=== PATIENT | female | born 1955 | race Caucasian/White ===

== ENCOUNTER 2019-07-16 14:50 | Emergency (ER) | payer OTHER ==
--- NOTE | 2019-07-16 14:56 | EDM.PDOC ---
ED HPI GENERAL MEDICAL PROBLEM - General Chief Complaint: Respiratory Problem Stated Complaint: respiratory issues Time Seen by Provider: 07/16/19 14:55 Source of Information: Reports: Patient, Old Records, RN, RN Notes Reviewed History Limitations: Reports: No Limitations - History of Present Illness INITIAL COMMENTS - FREE TEXT/NARRATIVE: 65 y.o F presents with cough, SOB ongoing for a couple weeks, worsened yesterday. Pt reports that she has not travelled out of the area or been around anybody who has been sick. Pt reports produtive cough that is yellow. Pt reports HX of pneumonia in the past. HX chronic steroid use. 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, Other Medication(s) Headache Pain Score (Numeric/FACES): 6 - Related Data Allergies Allergy/AdvReac Type Severity Reaction Status Date / Time cefdinir [From Omnicef] Allergy Anaphylactic Verified 07/16/19 16:28 Shock Cephalosporins Allergy Anaphylactic Verified 07/16/19 14:59 Shock ciprofloxacin Allergy Anaphylactic Verified 07/16/19 14:59 Shock doxycycline Allergy Vomiting Verified 07/16/19 14:59 infliximab [From Remicade] Allergy Hives Verified 07/16/19 16:28 levofloxacin [From Levaquin] Allergy Anaphylactic Verified 07/16/19 14:59 Shock ondansetron [From Zofran] Allergy Other Verified 07/16/19 14:59 rituximab [From Rituxan] Allergy Vomiting Verified 07/16/19 14:59 Sulfa (Sulfonamide Allergy Hives Verified 07/16/19 16:28 Antibiotics) Home Meds: Home Meds Abatacept [Orencia] 750 mg .ROUTE ASDIRECTED 07/16/19 [History] Albuterol [Proventil ER] 2 puff INH Q6H PRN 07/16/19 [History] Amoxicillin 2 gm PO ASDIRECTED PRN 07/16/19 [History] Aspirin [Aspirin EC] 81 mg PO DAILY 07/16/19 [History] Calcium Carbonate/Vitamin D3 [Calcium 500 mg Chewable Tablet] 1,000 mg PO TID [History] Cholecalciferol (Vitamin D3) [Vitamin D3] 800 units PO DAILY 07/16/19 [History] Denosumab [Prolia] 60 mg SUBCUT Q6M 07/16/19 [History] Fluconazole 150 mg PO Q48H PRN 07/16/19 [History] Leflunomide 20 mg PO DAILY 07/16/19 [History] Levothyroxine Sodium [Synthroid] 150 mcg PO DAILY 07/16/19 [History] Losartan [Cozaar] 100 mg PO DAILY 07/16/19 [History] Methylphenidate [Ritalin] 5 mg PO BID PRN 07/16/19 [History] Pantoprazole [ProTONIX] 40 mg PO BID 07/16/19 [History] Verapamil HCl [Verapamil Sr] 240 mg PO DAILY 07/16/19 [History] Zolpidem [Ambien] 10 mg PO BEDTIME PRN 07/16/19 [History] atenoloL [Atenolol] 50 mg PO DAILY 07/16/19 [History] estradioL [Estring] 1 each VAG WEEKLY 07/16/19 [History] oxyCODONE 5 mg PO Q6H PRN 07/16/19 [History] predniSONE 15 mg PO DAILY 07/16/19 [History] traMADol [Ultram] 50 mg PO Q6H PRN 07/16/19 [History] Past Medical History Cardiovascular History: Reports: Other (See Below) (autonomic dysregulation syndrome with paroxsymal tachycardia & hypotensive episodes.) Respiratory History: Reports: Pneumonia, Recurrent Gastrointestinal History: Reports: GERD Musculoskeletal History: Reports: RA Endocrine/Metabolic History: Reports: Hypothyroidism Immunologic History: Reports: Immunosuppression Social & Family History - Family History Family Medical History: Noncontributory - Living Situation & Occupation Living situation: Reports: with Family ED ROS GENERAL - Review of Systems Review Of Systems: Comprehensive ROS is negative, except as noted in HPI. ED EXAM, GENERAL - Physical Exam Exam: See Below Exam Limited By: No Limitations General Appearance: Alert, WD/WN, No Apparent Distress Eye Exam: Bilateral Eye: Normal Inspection Nose: Normal Inspection, Normal Mucosa, No Blood Throat/Mouth: Normal Lips, Normal Teeth, Normal Gums, Normal Oropharynx, Normal Voice, No Airway Compromise, Other (Dry oral mucosa) Head: Atraumatic, Normocephalic Neck: Normal Inspection, Supple, Non-Tender, Full Range of Motion. No: Lymphadenopathy (L), Lymphadenopathy (R) Respiratory/Chest: No Respiratory Distress, No Accessory Muscle Use, Chest Non- Tender, Decreased Breath Sounds, Crackles, Wheezing. No: Rales, Rhonchi, Stridor Cardiovascular: Regular Rate, Rhythm, No Edema GI/Abdominal: Normal Bowel Sounds, Soft, Non-Tender, No Distention Extremities: Normal Inspection Neurological: Alert, Oriented, No Motor/Sensory Deficits Psychiatric: Normal Mood Skin Exam: Warm, Dry, Intact, Normal Color, No Rash Course - Vital Signs Last Recorded V/S: Last Vital Signs Temp 97 F 07/16/19 14:55 Pulse 97 07/16/19 14:55 Resp 22 H 07/16/19 14:55 BP 137/67 07/16/19 14:55 Pulse Ox 96 07/16/19 14:55 - Orders/Labs/Meds Orders: Active Orders 24 hr Category Date Time Status Peripheral IV Care [RC] . DIRECTED Care 07/16/19 15:11 Active CULTURE BLOOD [BC] Stat Lab 07/16/19 15:09 Received CULTURE BLOOD [] Stat Lab 07/16/19 15:26 Received CULTURE STREP A CONFIRMATION [] Stat Lab 07/16/19 15:26 Results STREP SCRN A RAPID W CULT CONF [] Stat Lab 07/16/19 15:26 Results Sodium Chloride 0.9% [Normal Saline] 1,000 ml Med 07/16/19 16:30 Active IV .BOLUS Sodium Chloride 0.9% [Saline Flush] Med 07/16/19 15:11 Active 10 ml FLUSH ASDIRECTED PRN Blood Culture x2 Reflex Set [OM.PC] Stat Oth 07/16/19 15:10 Ordered Isolation [COMM] Routine Oth 07/16/19 15:11 Active Peripheral IV Insertion Adult [OM.PC] Stat Oth 07/16/19 15:09 Ordered Medication Orders Sodium Chloride (Normal Saline) 1,000 mls @ 999 mls/hr IV .BOLUS ONE Stop: 07/16/19 17:30 Sodium Chloride (Saline Flush) 10 ml FLUSH ASDIRECTED PRN PRN Reason: Keep Vein Open Last Admin: 07/16/19 15:31 Dose: 10 ml Labs: Laboratory Tests 07/16/19 07/16/19 07/16/19 Range/Units 15:09 15:09 15:09 WBC 12.6 H (5.0-10.0) 10^3/uL RBC 4.44 (4.2-5.4) 10^6/uL Hgb 13.5 (12.0-16.0) g/dL Hct 42.0 (37.0-47.0) % MCV 94.6 (80-100) fL MCH 30.4 (27.0-34.0) pg MCHC 32.1 L (33.0-35.0) g/dL Plt Count 355 (150-450) 10^3/uL Neut % (Auto) 83.3 H (42.2-75.2) % Lymph % (Auto) 8.9 L (20.5-50.1) % [place] % (Auto) 7.0 (2-8) % Eos % (Auto) 0.6 L (1.0-3.0) % Baso % (Auto) 0.2 (0.0-1.0) % Sodium 140 (136-145) mmol/L Potassium 4.0 (3.5-5.1) mmol/L Chloride 101 (98-107) mmol/L Carbon Dioxide 31 (21-32) mmol/L Anion Gap 12.0 (7-13) mEq/L BUN 24 H (7-18) mg/dL Creatinine 1.22 H (0.55-1.02) mg/dL Est Cr Clr Drug Dosing 46.49 mL/min Estimated GFR (MDRD) 45 BUN/Creatinine Ratio 19.7 (No establ ref range) Glucose 181 H (74-99) mg/dL Lactic Acid 1.6 (0.4-2.0) mmol/L Calcium 9.1 (8.5-10.1) mg/dL Total Bilirubin 0.2 (0.2-1.0) mg/dL AST 14 L (15-37) U/L ALT 20 (14-59) U/L Alkaline Phosphatase 68 (46-116) U/L C-Reactive Protein 9.4 H (0.0-0.9) mg/dL Total Protein 6.9 (6.4-8.2) g/dL Albumin 3.0 L (3.4-5.0) g/dL Globulin 3.9 Albumin/Globulin Ratio 0.77 SARS-CoV-2 RNA (RT-PCR) (NEGATIVE) 07/16/19 Range/Units 15:16 WBC (5.0-10.0) 10^3/uL RBC (4.2-5.4) 10^6/uL Hgb (12.0-16.0) g/dL Hct (37.0-47.0) % MCV (80-100) fL MCH (27.0-34.0) pg MCHC (33.0-35.0) g/dL Plt Count (150-450) 10^3/uL Neut % (Auto) (42.2-75.2) % Lymph % (Auto) (20.5-50.1) % [place] % (Auto) (2-8) % Eos % (Auto) (1.0-3.0) % Baso % (Auto) (0.0-1.0) % Sodium (136-145) mmol/L Potassium (3.5-5.1) mmol/L Chloride (98-107) mmol/L Carbon Dioxide (21-32) mmol/L Anion Gap (7-13) mEq/L BUN (7-18) mg/dL Creatinine (0.55-1.02) mg/dL Est Cr Clr Drug Dosing mL/min Estimated GFR (MDRD) BUN/Creatinine Ratio (No establ ref range) Glucose (74-99) mg/dL Lactic Acid (0.4-2.0) mmol/L Calcium (8.5-10.1) mg/dL Total Bilirubin (0.2-1.0) mg/dL AST (15-37) U/L ALT (14-59) U/L Alkaline Phosphatase (46-116) U/L C-Reactive Protein (0.0-0.9) mg/dL Total Protein (6.4-8.2) g/dL Albumin (3.4-5.0) g/dL Globulin Albumin/Globulin Ratio SARS-CoV-2 RNA (RT-PCR) Negative (NEGATIVE) Rapid Strep: negative Influenza A/B: negative Meds: Medications Generic Name Dose Route Start Last Admin Trade Name Freq PRN Reason Stop Dose Admin Sodium Chloride 1,000 mls @ 999 mls/hr 07/16/19 16:30 Normal Saline IV 07/16/19 17:30 .BOLUS ONE Sodium Chloride 10 ml 07/16/19 15:11 07/16/19 15:31 Saline Flush FLUSH 10 ml ASDIRECTED PRN Administration Keep Vein Open Discontinued Medications Generic Name Dose Route Start Last Admin Trade Name Britta PRN Reason Stop Dose Admin Sodium Chloride 1,000 mls @ 999 mls/hr 07/16/19 15:23 07/16/19 15:30 Normal Saline IV 07/16/19 16:23 999 mls/hr .BOLUS ONE Administration Azithromycin 500 mg/ Sodium 250 mls @ 250 mls/hr 07/16/19 16:07 07/16/19 16: 15 Chloride IV 07/16/19 17:06 250 mls/hr ONETIME ONE Administration Oxycodone/Acetaminophen 2 tab 07/16/19 16:17 07/16/19 16:23 Percocet 325-5 Mg PO 07/16/19 16:18 2 tab ONETIME ONE Administration - Radiology Interpretation Free Text/Narrative:: XR Chest: no acute abnormality per Rad. report. Departure - Departure Time of Disposition: 17:30 Disposition: Home, Self-Care 01 Condition: Good Clinical Impression: Dehydration, Steroid-induced hyperglycemia, History of rheumatoid arthritis, Immunosuppressed status Acute bronchitis Qualifiers: Bronchitis organism: unspecified organism Qualified Code(s): J20.9 - Acute bronchitis, unspecified - Discharge Information *PRESCRIPTION DRUG MONITORING PROGRAM REVIEWED*: Not Applicable *COPY OF PRESCRIPTION DRUG MONITORING REPORT IN PATIENT KRUNAL: Not Applicable Instructions: Hyperglycemia, Acute Bronchitis, Adult, Dehydration, Adult Forms: ED Department Discharge Additional Instructions: Continue Augmentin & Prednisone as prescribed. Use your Albuterol (Proventil/ProAir) 2 puffs or nebulizer, every 3 to 4 hours as needed. Drink plenty of water. Rx: Tessalon Perles 200mg Rx: Zithromax 500mg Follow up in clinic in 3 to 5 days for repeat labs and a follow up chest x-ray if not improving. Sepsis Event Note - Focused Exam Vital Signs: Vital Signs Temp Pulse Resp BP Pulse Ox 07/16/19 14:55 97 F 97 22 H 137/67 96 Date Exam was Performed: 07/16/19 Time Exam was Performed: 17:09 - My Orders Last 24 Hours: My Active Orders 07/16/19 15:09 CULTURE BLOOD [BC] Stat Peripheral IV Insertion Adult [OM.PC] Stat 07/16/19 15:10 Blood Culture x2 Reflex Set [OM.PC] Stat 07/16/19 15:11 Peripheral IV Care [RC] . DIRECTED Sodium Chloride 0.9% [Saline Flush] 10 ml FLUSH ASDIRECTED PRN Isolation [COMM] Routine 07/16/19 15:26 CULTURE BLOOD [BC] Stat CULTURE STREP A CONFIRMATION [RM] Stat STREP SCRN A RAPID W CULT CONF [RM] Stat 07/16/19 16:30 Sodium Chloride 0.9% [Normal Saline] 1,000 ml IV .BOLUS - Assessment/Plan Last 24 Hours: My Active Orders 07/16/19 15:09 CULTURE BLOOD [BC] Stat Peripheral IV Insertion Adult [OM.PC] Stat 07/16/19 15:10 Blood Culture x2 Reflex Set [OM.PC] Stat 07/16/19 15:11 Peripheral IV Care [RC] . DIRECTED Sodium Chloride 0.9% [Saline Flush] 10 ml FLUSH ASDIRECTED PRN Isolation [COMM] Routine 07/16/19 15:26 CULTURE BLOOD [BC] Stat CULTURE STREP A CONFIRMATION [RM] Stat STREP SCRN A RAPID W CULT CONF [RM] Stat 07/16/19 16:30 Sodium Chloride 0.9% [Normal Saline] 1,000 ml IV .BOLUS
[2019-07-16] MEDS ORDERED: Sodium Chloride 0.9% 10 ML Syringe FLUSH PRN (15:11)
[2019-07-16] MEDS ORDERED: Sodium Chloride 0.9% 1,000 ML IV ONE ×2 (15:23→16:30)
[2019-07-16] MEDS ORDERED: Azithromycin 500 MG in Sodium Chloride 0.9% 250 ML IV ONE (16:07)
--- NOTE | 2019-07-16 16:15 | CR ---
EXAMINATION: Chest 1V Frontal SEX: Female AGE: 64 years CLINICAL HISTORY: 64-year-old female with productive cough and shortness of breath (SOB). INTERPRETATION: 1. Apparent small implant device anterior chest wall on the left. 2. Isolated tiny nodular density right lung base (granuloma? Old rib fracture? Nipple shadow?). 3. Normal cardiac silhouette and pulmonary vascularity. No vascular congestion, cephalization of flow, alveolar edema or dependent effusion. 4. No other parenchymal lung nodule or mass lesion. No hilar/mediastinal lymphadenopathy. Midline tracheal bronchial airway unremarkable (tiny clip lower neck, left of midline. Thyroid surgery?) 5. No focal lobar pneumonia, atelectasis or collapse. 6. No pneumothorax or pneumomediastinum. Midline tracheal bronchial airway unremarkable. CONCLUSION: No acute cardiopulmonary abnormality.
[2019-07-16] MEDS ORDERED: Acetaminophen/oxyCODONE 325-5 MG Tab PO ONE (16:17)
== END 2019-07-16 18:06 | disposition home or self-care (01) ==
LOC: DL.ED 14:50
DX: J20.9 Acute bronchitis, unspecified (principal); E86.0 Dehydration; R73.9 Hyperglycemia, unspecified; M06.9 Rheumatoid arthritis, unspecified; K21.9 Gastro-esophageal reflux disease without esophagitis; E03.9 Hypothyroidism, unspecified; Z20.828 Contact with and (suspected) exposure to other viral communicable diseases; Z88.8 Allergy status to other drugs, medicaments and biological substances; Z88.1 Allergy status to other antibiotic agents; Z88.2 Allergy status to sulfonamides; Z79.82 Long term (current) use of aspirin; Z79.899 Other long term (current) drug therapy
CPT/HCPCS: 36415; 71045; 80053; 83605; 85025; 86140; 87040; 87081; 87430; 87635; 87804; 96361; 96365; 99283; A9270; J0456; J7030; J7050; U0002

== ENCOUNTER 2019-08-08 22:05 | Observation (INO) | payer OTHER ==
--- NOTE | 2019-08-08 22:11 | EDM.PDOC ---
ED HPI GENERAL MEDICAL PROBLEM - General Chief Complaint: Lower Extremity Injury/Pain Time Seen by Provider: 08/08/19 22:11 Source of Information: Reports: Patient, EMS, EMS Notes Reviewed, Family, RN, RN Notes Reviewed - History of Present Illness INITIAL COMMENTS - FREE TEXT/NARRATIVE: Patient presents to ER per [facility] with c/o right leg pain. Patient states she slipped on a piece of paper and fell on her buttocks. Patient states she did not hit her head and was no knocked out. Patient reports hx of rheumatoid arthritis, osteomalacia, osteopenia, among several other medical history. Patient states the pain is 4/10 when sitting still, and 8/10 with movement. Patient has the right leg bent with foot at the buttocks. Patient states this is a more comfortable position. Pt states pain is in the low buttocks region, and right leg. Onset: Today, Sudden Right Upper Leg Pain Score (Numeric/FACES): 4 - Related Data Allergies Allergy/AdvReac Type Severity Reaction Status Date / Time cefdinir [From Omnicef] Allergy Anaphylactic Verified 08/08/19 22:38 Shock Cephalosporins Allergy Anaphylactic Verified 08/08/19 22:38 Shock ciprofloxacin Allergy Anaphylactic Verified 08/08/19 22:38 Shock doxycycline Allergy Vomiting Verified 08/08/19 22:38 infliximab [From Remicade] Allergy Hives Verified 08/08/19 22:38 levofloxacin [From Levaquin] Allergy Anaphylactic Verified 08/08/19 22:38 Shock ondansetron [From Zofran] Allergy Other Verified 08/08/19 22:38 rituximab [From Rituxan] Allergy Vomiting Verified 08/08/19 22:38 Sulfa (Sulfonamide Allergy Hives Verified 08/08/19 22:38 Antibiotics) Home Meds: Home Meds Abatacept [Orencia] 750 mg .ROUTE ASDIRECTED 07/16/19 [History] Albuterol [Proventil ER] 2 puff INH Q6H PRN 07/16/19 [History] Amoxicillin 2 gm PO ASDIRECTED PRN 07/16/19 [History] Aspirin [Aspirin EC] 81 mg PO DAILY 07/16/19 [History] Calcium Carbonate/Vitamin D3 [Calcium 500 mg Chewable Tablet] 1,000 mg PO TID 07/16/19 [History] Cholecalciferol (Vitamin D3) [Vitamin D3] 800 units PO DAILY 07/16/19 [History] Denosumab [Prolia] 60 mg SUBCUT Q6M 07/16/19 [History] Fluconazole 150 mg PO Q48H PRN 07/16/19 [History] Leflunomide 20 mg PO DAILY 07/16/19 [History] Levothyroxine Sodium [Synthroid] 150 mcg PO DAILY 07/16/19 [History] Losartan [Cozaar] 100 mg PO DAILY 07/16/19 [History] Methylphenidate [Ritalin] 5 mg PO BID PRN 07/16/19 [History] Pantoprazole [ProTONIX] 40 mg PO BID 07/16/19 [History] Verapamil HCl [Verapamil Sr] 240 mg PO DAILY 07/16/19 [History] Zolpidem [Ambien] 10 mg PO BEDTIME PRN 07/16/19 [History] atenoloL [Atenolol] 50 mg PO DAILY 07/16/19 [History] estradioL [Estring] 1 each VAG WEEKLY 07/16/19 [History] oxyCODONE 5 mg PO Q6H PRN 07/16/19 [History] predniSONE 15 mg PO DAILY 07/16/19 [History] traMADol [Ultram] 50 mg PO Q6H PRN 07/16/19 [History] Past Medical History Cardiovascular History: Reports: Other (See Below) (autonomic dysregulation syndrome with paroxsymal tachycardia & hypotensive episodes.) Respiratory History: Reports: Pneumonia, Recurrent Gastrointestinal History: Reports: GERD Musculoskeletal History: Reports: RA Endocrine/Metabolic History: Reports: Hypothyroidism Other Endocrine/Metabolic History: hypocalcemia chronic Immunologic History: Reports: Immunosuppression - Past Surgical History HEENT Surgical History: Reports: Adenoidectomy, Tonsillectomy Endocrine Surgical History: Reports: Thyroidectomy Musculoskeletal Surgical History: Reports: Arthroscopic Knee, Hip Replacement Social & Family History - Family History Family Medical History: Noncontributory - Caffeine Use Caffeine Use: Reports: None - Living Situation & Occupation Living situation: Reports: with Family Review of Systems - Review of Systems Review Of Systems: Comprehensive ROS is negative, except as noted in HPI. ED EXAM, GENERAL - Physical Exam Exam: See Below Exam Limited By: No Limitations General Appearance: Alert, WD/WN, No Apparent Distress Ears: Normal External Exam, Hearing Grossly Normal Nose: Normal Inspection Throat/Mouth: Normal Inspection, Normal Voice, No Airway Compromise Head: Atraumatic, Normocephalic Neck: Normal Inspection, Supple, Non-Tender, Full Range of Motion Respiratory/Chest: No Respiratory Distress, Lungs Clear, Normal Breath Sounds, No Accessory Muscle Use, Chest Non-Tender Cardiovascular: Normal Peripheral Pulses, Regular Rate, Rhythm, No Edema, No Gallop, No JVD, No Murmur, No Rub Peripheral Pulses: 2+: Radial (L), Radial (R), Dorsalis Pedis (L), Dorsalis Pedis (R) GI/Abdominal: Normal Bowel Sounds, Soft, Non-Tender (Female) Exam: Deferred Rectal (Female) Exam: Deferred Back Exam: Normal Inspection, Full Range of Motion, NT Extremities: Leg Pain (right leg), Limited Range of Motion (right leg) Neurological: Alert, Oriented, Normal Cognition Psychiatric: Normal Affect, Anxious, Tearful Skin Exam: Warm, Dry, Intact, Normal Color, No Rash Lymphatic: No Adenopathy Course - Vital Signs Last Recorded V/S: Last Vital Signs Temp 97.9 F 08/08/19 22:15 Pulse 78 08/08/19 22:15 Resp 16 08/08/19 22:15 BP 169/81 H 08/08/19 22:15 Pulse Ox 97 08/08/19 22:15 - Orders/Labs/Meds Meds: Medications Discontinued Medications Generic Name Dose Route Start Last Admin Trade Name Freq PRN Reason Stop Dose Admin Fentanyl 25 mcg 08/08/19 22:37 08/08/19 22:41 Sublimaze IVPUSH 08/08/19 22:38 25 mcg ONETIME ONE Administration Hydromorphone HCl 1 mg 08/08/19 23:28 08/08/19 23:37 Dilaudid IM 08/08/19 23:29 Not Given ONETIME ONE Hydromorphone HCl 1 mg 08/08/19 23:35 08/08/19 23:36 Dilaudid IVPUSH 08/08/19 23:36 1 mg ONETIME ONE Administration - Radiology Interpretation Free Text/Narrative:: Pelvis CT wo contrast: PROCEDURE INFORMATION: Exam: CT Pelvis Without Contrast; Skeletal Exam date and time: 08/08/2019 10:35 PM Age: 64 years old Clinical indication: Other: Right hip pain; Additional info: Fall, injury TECHNIQUE: Imaging protocol: Computed tomography images of the pelvis without contrast. Exam focused on the skeletal structures. Radiation optimization: All CT scans at this facility use at least one of these dose optimization techniques: automated exposure control; mA and/or kV adjustment per patient size (includes targeted exams where dose is matched to clinical indication); or iterative reconstruction. COMPARISON: No relevant prior studies available. FINDINGS: Bones/joints: Status post bipolar left hip replacement. Irregular sclerosis seen within the sacral ala bilaterally suggesting bilateral insufficiency fractures of indeterminate age. Soft tissues: Unremarkable. IMPRESSION: Irregular sclerosis seen in the sacral ala bilaterally suggest bilateral insufficiency fractures of indeterminate age. Thank you for allowing us to participate in the care of your patient. Dictated and Authenticated by: Jamel Kenny MD 08/08/2019 10:49 PM Central Time ([place] & [place]) See rad report - Re-Assessments/Exams Free Text/Narrative Re-Assessment/Exam: 08/08/19 23:31 Discussed patient case with Dr. Hylton who agreed to admit the patient for observation. Departure - Departure Time of Disposition: 23:30 Disposition: Refer to Observation Condition: Fair Clinical Impression: Right leg pain Fall at home Qualifiers: Encounter type: initial encounter Qualified Code(s): W19.XXXA - Unspecified fall, initial encounter - Discharge Information *PRESCRIPTION DRUG MONITORING PROGRAM REVIEWED*: No *COPY OF PRESCRIPTION DRUG MONITORING REPORT IN PATIENT KRUNAL: No Sepsis Event Note (ED) - Focused Exam Vital Signs: Vital Signs Temp Pulse Resp BP Pulse Ox 08/08/19 22:15 97.9 F 78 16 169/81 H 97
[2019-08-08] MEDS ORDERED: fentaNYL 100 MCG/2 ML SDV IVPUSH ONE (22:37)
--- NOTE | 2019-08-08 22:49 | CT ---
PROCEDURE INFORMATION: Exam: CT Pelvis Without Contrast; Skeletal Exam date and time: 08/08/2019 10:35 PM Age: 64 years old Clinical indication: Other: Right hip pain; Additional info: Fall, injury TECHNIQUE: Imaging protocol: Computed tomography images of the pelvis without contrast. Exam focused on the skeletal structures. Radiation optimization: All CT scans at this facility use at least one of these dose optimization techniques: automated exposure control; mA and/or kV adjustment per patient size (includes targeted exams where dose is matched to clinical indication); or iterative reconstruction. COMPARISON: No relevant prior studies available. FINDINGS: Bones/joints: Status post bipolar left hip replacement. Irregular sclerosis seen within the sacral ala bilaterally suggesting bilateral insufficiency fractures of indeterminate age. Soft tissues: Unremarkable. IMPRESSION: Irregular sclerosis seen in the sacral ala bilaterally suggest bilateral insufficiency fractures of indeterminate age.
[2019-08-08] MEDS ORDERED: HYDROmorphone 0.5 MG/0.5 ML Syringe IM ONE (23:28)
[2019-08-08] MEDS ORDERED: HYDROmorphone 1 MG/ML Syringe IVPUSH ONE (23:35)
[2019-08-09] MEDS ORDERED: Acetaminophen 325 MG Tab PO PRN (00:35)
[2019-08-09] MEDS ORDERED: Ondansetron 4 MG Tab.DIS PO PRN (00:35)
[2019-08-09] MEDS ORDERED: HYDROmorphone 1 MG/ML Syringe IVPUSH PRN (00:35)
--- NOTE | 2019-08-09 00:41 | PCM.HP ---
H&P History of Present Illness - General Date of Service: 08/09/19 Admit Problem/Dx: Admission Diagnosis/Problem Admission Diagnosis/Problem Uncontrolled pain Source of Information: Patient History Limitations: Reports: No Limitations - History of Present Illness Initial Comments - Free Text/Narative: Inder is 64 y/o F with PMH of recent left knee repair, left hip replacement, Rheumatoid arthritis, osteomalacia, osteopenia, HTN. Hypothyroidism who presented to the ED via EMS for evaluation of right leg pain following a fall. As per patient she slipped on a piece of paper and fell on her buttocks. She is not sure which part of the buttocks she imparted. She ended upon the floor with her right leg stretched out. She did not hit her head or passed out. She denies prodrome. She sustained severe pain to the back of te right thigh. Pain is 10/10 when severe, worse when she stretched the right leg and improves with flexing the leg at the knee and hip. CT pelvis showed irregular sclerosis seen in the sacral ala bilaterally suggest bilateral insufficiency fractures of indeterminate age. No acute acute fracture. Admission was requested for further management. Patient at the of this evaluation denies chest pain, OSB, fever, chills. Onset of Symptoms: Reports: Today Duration of Symptoms: Reports: Hour(s): Quality: Reports: Sharp Severity: Severe Improves with: Reports: Rest Worsens with: Reports: Immobilization Context: Reports: Activity/Exercise Associated Symptoms: Reports: No Other Symptoms Right Upper Leg Pain Score (Numeric/FACES): 4 - Related Data Allergies/Adverse Reactions: Allergies Allergy/AdvReac Type Severity Reaction Status Date / Time cefdinir [From Omnicef] Allergy Anaphylactic Verified 08/09/19 00:13 Shock Cephalosporins Allergy Anaphylactic Verified 08/09/19 00:13 Shock ciprofloxacin Allergy Anaphylactic Verified 08/09/19 00:13 Shock doxycycline Allergy Vomiting Verified 08/09/19 00:13 infliximab [From Remicade] Allergy Hives Verified 08/09/19 00:13 levofloxacin [From Levaquin] Allergy Anaphylactic Verified 08/09/19 00:13 Shock ondansetron [From Zofran] Allergy Other Verified 08/09/19 00:13 rituximab [From Rituxan] Allergy Vomiting Verified 08/09/19 00:13 Sulfa (Sulfonamide Allergy Hives Verified 08/09/19 00:13 Antibiotics) Home Medications: Home Meds Abatacept [Orencia] 750 mg .ROUTE ASDIRECTED 07/16/19 [History] Albuterol [Proventil ER] 2 puff INH Q6H PRN 07/16/19 [History] Amoxicillin 2 gm PO ASDIRECTED PRN 07/16/19 [History] Aspirin [Aspirin EC] 81 mg PO DAILY 07/16/19 [History] Calcium Carbonate/Vitamin D3 [Calcium 500 mg Chewable Tablet] 1,000 mg PO TID 07/16/19 [History] Cholecalciferol (Vitamin D3) [Vitamin D3] 800 units PO DAILY 07/16/19 [History] Denosumab [Prolia] 60 mg SUBCUT Q6M 07/16/19 [History] Fluconazole 150 mg PO Q48H PRN 07/16/19 [History] Leflunomide 20 mg PO DAILY 07/16/19 [History] Levothyroxine Sodium [Synthroid] 150 mcg PO DAILY 07/16/19 [History] Losartan [Cozaar] 100 mg PO DAILY 07/16/19 [History] Methylphenidate [Ritalin] 5 mg PO BID PRN 07/16/19 [History] Pantoprazole [ProTONIX] 40 mg PO BID 07/16/19 [History] Verapamil HCl [Verapamil Sr] 240 mg PO DAILY 07/16/19 [History] Zolpidem [Ambien] 10 mg PO BEDTIME PRN 07/16/19 [History] atenoloL [Atenolol] 50 mg PO DAILY PRN 07/16/19 [History] estradioL [Estring] 1 each VAG WEEKLY 07/16/19 [History] oxyCODONE 5 mg PO Q6H PRN 07/16/19 [History] predniSONE 12 mg PO DAILY 07/16/19 [History] traMADol [Ultram] 50 mg PO Q6H PRN 07/16/19 [History] Past Medical History HEENT History: Reports: Hard of Hearing, Impaired Vision, Other (See Below) Other HEENT History: wears hearing aids Cardiovascular History: Reports: Other (See Below) Other Cardiovascular History: autonomic dysfunction with a loop monitor Respiratory History: Reports: Pneumonia, Recurrent Gastrointestinal History: Reports: GERD, Other (See Below) Other Gastrointestinal History: malabsorption, gluten intolerent Musculoskeletal History: Reports: RA Other Musculoskeletal History: osteo Neurological History: Reports: TIA Psychiatric History: Reports: None Endocrine/Metabolic History: Reports: Hypothyroidism Other Endocrine/Metabolic History: hypocalcemia chronic Hematologic History: Reports: None Immunologic History: Reports: Immunosuppression Oncologic (Cancer) History: Reports: Thyroid, Other (See Below) Other Oncologic History: history Dermatologic History: Reports: None - Past Surgical History HEENT Surgical History: Reports: Adenoidectomy, Tonsillectomy Endocrine Surgical History: Reports: Thyroidectomy Musculoskeletal Surgical History: Reports: Arthroscopic Knee, Hip Replacement, Other (See Below) Other Musculoskeletal Surgeries/Procedures:: L) hip Social & Family History - Family History Family Medical History: Noncontributory - Tobacco Use Smoking Status *Q: Never Smoker - Caffeine Use Caffeine Use: Reports: None - Recreational Drug Use Recreational Drug Use: No - Living Situation & Occupation Living situation: Reports: with Family H&P Review of Systems - Review of Systems: Review Of Systems: See Below General: Reports: No Symptoms HEENT: Reports: No Symptoms Pulmonary: Reports: No Symptoms Cardiovascular: Reports: No Symptoms Gastrointestinal: Reports: No Symptoms Genitourinary: Reports: No Symptoms Musculoskeletal: Reports: Other (pain to back of right thigh ) Skin: Reports: No Symptoms Psychiatric: Reports: No Symptoms Neurological: Reports: No Symptoms Hematologic/Lymphatic: Reports: No Symptoms Immunologic: Reports: No Symptoms Exam - Exam Exam: See Below - Vital Signs Vital Signs: Last Vital Signs Temp 97.3 F 08/09/19 00:05 Pulse 75 08/09/19 00:05 Resp 18 08/09/19 00:05 BP 142/70 H 08/09/19 00:05 Pulse Ox 95 08/09/19 00:05 Weight: 163 lb 12.8 oz - Exam Quality Assessment: Other General: Alert, Oriented, Other (in painful distress) HEENT: PERRLA, Hearing Intact, Mucosa Moist & Silvana, Nares Patent, Normal Nasal Septum, Posterior Pharynx Clear, Conjunctiva Clear, EOMI, EACs Clear, TMs Clear Neck: Supple, Trachea Midline, 2 Lungs: Clear to Auscultation, Normal Respiratory Effort Cardiovascular: Regular Rate, Regular Rhythm GI/Abdominal Exam: Normal Bowel Sounds, Soft, Non-Tender, No Organomegaly, No Distention, No Abnormal Bruit, No Mass, Pelvis Stable (Female) Exam: Normal External Exam, Normal Speculum Exam, Normal Bimanual Exam Rectal (Female) Exam: Normal Exam, Normal Rectal Tone Back Exam: Normal Inspection, Full Range of Motion, NT Extremities: Normal Inspection, Normal Range of Motion, Non-Tender, No Pedal Edema, Normal Capillary Refill, Other (Tenderness to back of right thigh) Skin: Warm, Dry, Intact Neurological: Cranial Nerves Intact, Reflexes Equal Bilateral Neuro Extensive - Mental Status: Alert, Oriented x3, Normal Mood/Affect, Normal Cognition Neuro Extensive - Motor, Sensory, Reflexes: CN II-XII Intact, Normal Gait, Normal Reflexes Psychiatric: Alert, Normal Affect, Normal Mood - Patient Data Result Diagrams: 08/09/19 05:40 08/09/19 05:40 - Problem List (1) Fall at home SNOMED Code(s): 89554889 ICD Code: W19.XXXA - UNSPECIFIED FALL, INITIAL ENCOUNTER; Y92.009 - UNSP PLACE IN UNSP NON-INSTITUT (PRIVATE) RESIDENCE PLACE Status: Acute Current Visit: Yes Qualifiers: Encounter type: initial encounter Qualified Code(s): W19.XXXA - Unspecified fall, initial encounter; Y92.009 - Unspecified place in unspecified non- institutional (private) residence as the place of occurrence of the external cause (2) Right leg pain SNOMED Code(s): 597214194 ICD Code: M79.604 - PAIN IN RIGHT LEG Status: Acute Current Visit: Yes Problem List Initiated/Reviewed/Updated: Yes Orders Last 24hrs: Active Orders 24 hr Category Date Time Status Admission Diagnosis [ADT] Stat ADT 08/08/19 23:28 Ordered Admission Status [Patient Status] [ADT] Routine ADT 08/08/19 23:28 Active Bedrest Bedside Commode [RC] ASDIRECTED Care 08/09/19 00:35 Ordered Height and Weight [RC] DAILY Care 08/09/19 00:35 Ordered Intake and Output [RC] QSHIFT Care 08/09/19 00:35 Ordered Notify Provider Vital Signs [RC] ASDIRECTED Care 08/09/19 00:36 Ordered Oxygen Therapy [RC] PRN Care 08/09/19 00:35 Ordered VTE/DVT Education [RC] PER UNIT ROUTINE Care 08/09/19 00:35 Ordered Vital Signs [RC] Q4H Care 08/09/19 00:35 Ordered OT Evaluation and Treatment [CONS] Routine Cons 08/09/19 00:35 Ordered PT Evaluation and Treatment [CONS] Routine Cons 08/09/19 00:35 Ordered Regular Diet [DIET] Diet 08/09/19 Breakfast Ordered BASIC METABOLIC PANEL,BMP [CHEM] Routine Lab 08/09/19 00:35 Ordered CBC W/O DIFF,HEMOGRAM [HEME] Routine Lab 08/09/19 00:35 Ordered Acetaminophen [Tylenol] Med 08/09/19 00:35 Ordered 650 mg PO Q4H PRN HYDROmorphone [Dilaudid] Med 08/09/19 00:35 Ordered 0.5 mg IVPUSH Q2H PRN Heparin Sodium Med 08/09/19 09:00 Ordered 5,000 units SUBCUT Q12HR Ondansetron [Zofran ODT] Med 08/09/19 00:35 Ordered 4 mg PO Q6H PRN Sodium Chloride 0.9% [Normal Saline] 1,000 ml Med 08/09/19 00:45 Ordered IV ASDIRECTED oxyCODONE Med 08/09/19 00:35 Ordered 10 mg PO Q6H PRN Resuscitation Status Routine Resus Stat 08/09/19 00:35 Ordered Medication Orders Acetaminophen (Tylenol) 650 mg PO Q4H PRN PRN Reason: Pain (Mild 1-3)/fever Heparin Sodium (Porcine) (Heparin Sodium) 5,000 units SUBCUT Q12HR JUDY Sodium Chloride (Normal Saline) 1,000 mls @ 75 mls/hr IV ASDIRECTED JUDY Oxycodone HCl (Oxycodone) 10 mg PO Q6H PRN PRN Reason: Pain (moderate 4-6) Assessment/Plan Comment:: #Right posterior thigh pain s/p mechanical fall -Patient presented to the ED for evaluation of above following a fall -CT pelvis no acute fracture. Irregular sclerosis seen in the sacral ala bilaterally suggest bilateral insufficiency fractures of indeterminate age. -Admit to medical floor -MRI pelvis in the AM -Pain control with oxycodone and Dilaudid -PT/OT #HTN -Continue home medications #Hypothyroidism -Continue Synthroid #RA -Continue home medication
[2019-08-09] MEDS ORDERED: Sodium Chloride 0.9% 1,000 ML IV SCH (00:45)
[2019-08-09] MEDS ORDERED: Atenolol 50 MG Tab PO PRN (00:48)
[2019-08-09] MEDS ORDERED: METHYLPHENIDATE 5 MG PO PRN (00:48)
[2019-08-09] MEDS ORDERED: fentaNYL 100 MCG/2 ML SDV IVPUSH PRN (00:54)
[2019-08-09] MEDS: oxyCODONE 5 MG Tab PO PRN ×2 (01:15→08:37)
[2019-08-09] MEDS ORDERED: Albuterol 6.7 GM Inhaler INH PRN (01:20)
[2019-08-09] MEDS ORDERED: Zolpidem 5 MG Tab PO PRN (01:26)
[2019-08-09] MEDS ORDERED: Sodium Chloride 0.9% 10 ML Syringe FLUSH PRN (03:35)
[2019-08-09] MEDS: HYDROmorphone 0.5 MG/0.5 ML Syringe IVPUSH PRN ×2 (06:01→11:23)
[2019-08-09 06:58] LABS: ANION GAP 8.3 mEq/L (7-13); CHLORIDE,CL 107 mmol/L (98-107); SODIUM,NA 142 mmol/L (136-145)
[2019-08-09] MEDS ORDERED: Pantoprazole 40 MG Tab.CR PO SCH (09:00)
[2019-08-09] MEDS ORDERED: Heparin Sodium 5,000 Units/ML Vial SUBCUT SCH (09:00)
[2019-08-09] MEDS ORDERED: Cholecalciferol (Vitamin D3) 25 MCG Tab PO SCH (09:00)
[2019-08-09] MEDS ORDERED: Losartan 50 MG Tab PO SCH (09:00)
[2019-08-09] MEDS ORDERED: Aspirin 81 MG Tab.EC PO SCH (09:00)
[2019-08-09] MEDS ORDERED: predniSONE 1 MG Tab PO SCH (09:00)
[2019-08-09] MEDS ORDERED: Baclofen 10 MG Tab PO SCH (09:00)
[2019-08-09] MEDS ORDERED: Calcium Carbonate/Vitamin D3 1250 MG-200 Unit Tab PO SCH (09:00)
[2019-08-09] MEDS ORDERED: predniSONE 10 MG Tab PO SCH (09:00)
[2019-08-09] MEDS ORDERED: Levothyroxine 150 MCG Tab PO SCH (09:00)
[2019-08-09] MEDS ORDERED: Verapamil 240 MG Tab.ER PO SCH (09:00)
--- NOTE | 2019-08-09 10:22 | PCM.DCSUM1 ---
Discharge Summary - Hospital Course Free Text/Narrative:: Inder is 64 y/o F with PMH of recent left knee repair, left hip replacement, Rheumatoid arthritis, osteomalacia, osteopenia, HTN. Hypothyroidism who presented to the ED via EMS for evaluation of right leg pain following a fall. As per patient she slipped on a piece of paper and fell on her buttocks. She is not sure which part of the buttocks she imparted. She ended upon the floor with her right leg stretched out. She did not hit her head or passed out. She denies prodrome. She sustained severe pain to the back of te right thigh. Pain is 10/10 when severe, worse when she stretched the right leg and improves with flexing the leg at the knee and hip. CT pelvis showed irregular sclerosis seen in the sacral ala bilaterally suggest bilateral insufficiency fractures of indeterminate age. No acute acute fracture. Admission was requested for further management. This morning it was realized that MRI service was not available. Patient still in severe and was unable to tolerate physical therapy. Decision was made to transfer patient to [facility] for MRI to evalute for soft tissue injury and orthopedic evaluation. Dr. Good agreed to accept patient. Diagnosis: Stroke: No - Discharge Data Discharge Date: 08/09/19 Discharge Disposition: DC/Tfer to Acute Hospital 02 Condition: Stable - Referral to Home Health Primary Care Physician: Mallika Hernandez MD - Discharge Diagnosis/Problem(s) (1) Fall at home SNOMED Code(s): 09902380 ICD Code: W19.XXXA - UNSPECIFIED FALL, INITIAL ENCOUNTER; Y92.009 - UNSP PLACE IN UNSP NON-INSTITUT (PRIVATE) RESIDENCE PLACE Status: Acute Current Visit: Yes Qualifiers: Encounter type: initial encounter Qualified Code(s): W19.XXXA - Unspecified fall, initial encounter; Y92.009 - Unspecified place in unspecified non- institutional (private) residence as the place of occurrence of the external cause (2) Right leg pain SNOMED Code(s): 036853585 ICD Code: M79.604 - PAIN IN RIGHT LEG Status: Acute Current Visit: Yes - Patient Summary/Data Consults: Consultations 08/09/19 00:35 OT Evaluation and Treatment [CONS] Routine PT Evaluation and Treatment [CONS] Routine - Discharge Plan *PRESCRIPTION DRUG MONITORING PROGRAM REVIEWED*: No *COPY OF PRESCRIPTION DRUG MONITORING REPORT IN PATIENT KRUNAL: No Home Medications: Home Meds Abatacept [Orencia] 750 mg .ROUTE ASDIRECTED 07/16/19 [History] Albuterol [Proventil ER] 2 puff INH Q6H PRN 07/16/19 [History] Amoxicillin 2 gm PO ASDIRECTED PRN 07/16/19 [History] Aspirin [Aspirin EC] 81 mg PO DAILY 07/16/19 [History] Calcium Carbonate/Vitamin D3 [Calcium 500 mg Chewable Tablet] 1,000 mg PO TID 07/16/19 [History] Cholecalciferol (Vitamin D3) [Vitamin D3] 800 units PO DAILY 07/16/19 [History] Denosumab [Prolia] 60 mg SUBCUT Q6M 07/16/19 [History] Fluconazole 150 mg PO Q48H PRN 07/16/19 [History] Leflunomide 20 mg PO DAILY 07/16/19 [History] Levothyroxine Sodium [Synthroid] 150 mcg PO DAILY 07/16/19 [History] Losartan [Cozaar] 100 mg PO DAILY 07/16/19 [History] Methylphenidate [Ritalin] 5 mg PO BID PRN 07/16/19 [History] Pantoprazole [ProTONIX] 40 mg PO BID 07/16/19 [History] Verapamil HCl [Verapamil Sr] 240 mg PO DAILY 07/16/19 [History] Zolpidem [Ambien] 10 mg PO BEDTIME PRN 07/16/19 [History] atenoloL [Atenolol] 50 mg PO DAILY PRN 07/16/19 [History] estradioL [Estring] 1 each VAG WEEKLY 07/16/19 [History] oxyCODONE 5 mg PO Q6H PRN 07/16/19 [History] predniSONE 12 mg PO DAILY 07/16/19 [History] traMADol [Ultram] 50 mg PO Q6H PRN 07/16/19 [History] Oxygen Therapy Mode: Room Air Forms: ED Department Discharge Referrals: Mallika Hrenandez MD [Primary Care Provider] - - Discharge Summary/Plan Comment DC Time >30 min.: Yes - General Info Date of Service: 08/09/19 Admission Dx/Problem (Free Text: Admission Diagnosis/Problem Admission Diagnosis/Problem Uncontrolled pain Functional Status: Reports: Pain Controlled - Review of Systems General: Reports: No Symptoms HEENT: Reports: No Symptoms Pulmonary: Reports: No Symptoms Cardiovascular: Reports: No Symptoms Gastrointestinal: Reports: No Symptoms Genitourinary: Reports: No Symptoms Musculoskeletal: Reports: No Symptoms Skin: Reports: No Symptoms Neurological: Reports: No Symptoms Psychiatric: Reports: No Symptoms - Patient Data Vitals - Most Recent: Last Vital Signs Temp 98.8 F 08/09/19 08:00 Pulse 80 08/09/19 08:00 Resp 18 08/09/19 08:00 BP 146/79 H 08/09/19 08:47 Pulse Ox 96 08/09/19 08:00 Weight - Most Recent: 163 lb 12.8 oz Lab Results - Last 24 hrs: Laboratory Results - last 24 hr 08/09/19 08/09/19 Range/Units 05:40 05:40 WBC 10.3 H (5.0-10.0) 10^3/uL RBC 3.27 L (4.2-5.4) 10^6/uL Hgb 9.9 L D (12.0-16.0) g/dL Hct 32.0 L (37.0-47.0) % MCV 97.9 D (80-100) fL MCH 30.3 (27.0-34.0) pg MCHC 30.9 L (33.0-35.0) g/dL Plt Count 252 D (150-450) 10^3/uL Sodium 142 (136-145) mmol/L Potassium 3.3 L (3.5-5.1) mmol/L Chloride 107 (98-107) mmol/L Carbon Dioxide 30 (21-32) mmol/L Anion Gap 8.3 (7-13) mEq/L BUN 21 H (7-18) mg/dL Creatinine 0.88 (0.55-1.02) mg/dL Est Cr Clr Drug Dosing 62.05 mL/min Estimated GFR (MDRD) > 60 Glucose 88 (74-99) mg/dL Calcium 7.6 L D (8.5-10.1) mg/dL Med Orders - Current: Current Medications Acetaminophen (Tylenol) 650 mg PO Q4H PRN PRN Reason: Pain (Mild 1-3)/fever Albuterol (Proventil Hfa) 0 gm INH Q6H PRN PRN Reason: Wheezing Aspirin (Halfprin) 81 mg PO DAILY [facility] Last Admin: 08/09/19 08:36 Dose: 81 mg Documented by: Atenolol (Tenormin) 50 mg PO DAILY PRN PRN Reason: Other Baclofen (Lioresal) 10 mg PO TID [facility] Last Admin: 08/09/19 08:47 Dose: Not Given Documented by: Calcium Carbonate (Calcium Carbonate/Vitamin D 1250 Mg-200 Unit) 1 tab PO TID [facility] Last Admin: 08/09/19 08:46 Dose: Not Given Documented by: Cholecalciferol (Vitamin D3) 25 mcg PO DAILY [facility] Last Admin: 08/09/19 08:37 Dose: 25 mcg Documented by: Heparin Sodium (Porcine) (Heparin Sodium) 5,000 units SUBCUT Q12HR [facility] Last Admin: 08/09/19 08:46 Dose: Not Given Documented by: Hydromorphone HCl (Dilaudid) 0.5 mg IVPUSH Q2H PRN PRN Reason: Pain (severe 7-10) Last Admin: 08/09/19 06:01 Dose: 0.5 mg Documented by: Sodium Chloride (Normal Saline) 1,000 mls @ 75 mls/hr IV ASDIRECTED [facility] Last Admin: 08/09/19 01:05 Dose: 75 mls/hr Documented by: Leflunomide (Arava) 20 mg PO DAILY [facility] Levothyroxine Sodium (Levothyroxine) 150 mcg PO DAILY [facility] Last Admin: 08/09/19 08:37 Dose: 150 mcg Documented by: Losartan Potassium (Cozaar) 100 mg PO DAILY [facility] Last Admin: 08/09/19 08:47 Dose: 100 mg Documented by: Non-Formulary Medication (Methylphenidate [Ritalin]) 5 mg PO BID PRN PRN Reason: fatigue Ondansetron HCl (Zofran Odt) 4 mg PO Q6H PRN PRN Reason: nausea, able to take PO Oxycodone HCl (Oxycodone) 10 mg PO Q6H PRN PRN Reason: Pain (moderate 4-6) Last Admin: 08/09/19 08:37 Dose: 10 mg Documented by: Pantoprazole Sodium (Protonix) 40 mg PO BID [facility] Last Admin: 08/09/19 08:36 Dose: 40 mg Documented by: Potassium Chloride (Klor-Con 10) 40 meq PO BEDTIME [facility] Stop: 08/14/19 21:01 Prednisone (Prednisone) 10 mg PO DAILY [facility] Last Admin: 08/09/19 08:36 Dose: 10 mg Documented by: Prednisone (Prednisone) 2 mg PO DAILY [facility] Last Admin: 08/09/19 08:37 Dose: 2 mg Documented by: Sodium Chloride (Saline Flush) 10 ml FLUSH ASDIRECTED PRN PRN Reason: Keep Vein Open Verapamil HCl (Calan Sr) 240 mg PO DAILY [facility] Last Admin: 08/09/19 08:36 Dose: 240 mg Documented by: Zolpidem Tartrate (Ambien) 10 mg PO BEDTIME PRN PRN Reason: Sleep Discontinued Medications Fentanyl (Sublimaze) 25 mcg IVPUSH ONETIME ONE Stop: 08/08/19 22:38 Last Admin: 08/08/19 22:41 Dose: 25 mcg Documented by: Fentanyl (Sublimaze) 25 mcg IVPUSH Q2H PRN PRN Reason: Pain (severe 7-10) Hydromorphone HCl (Dilaudid) 1 mg IM ONETIME ONE Stop: 08/08/19 23:29 Last Admin: 08/08/19 23:37 Dose: Not Given Documented by: Hydromorphone HCl (Dilaudid) 1 mg IVPUSH ONETIME ONE Stop: 08/08/19 23:36 Last Admin: 08/08/19 23:36 Dose: 1 mg Documented by: Hydromorphone HCl (Dilaudid) 0.5 mg IVPUSH Q2H PRN PRN Reason: Pain (severe 7-10) - Exam General: Reports: Alert, Oriented HEENT: Reports: Pupils Equal, Pupils Reactive, EOMI, Mucous Membr. Moist/[place] Neck: Reports: Supple Lungs: Reports: Clear to Auscultation, Normal Respiratory Effort Cardiovascular: Reports: Regular Rate, Regular Rhythm GI/Abdominal Exam: Normal Bowel Sounds, Soft, Non-Tender, No Organomegaly, No Distention, No Abnormal Bruit, No Mass, Pelvis Stable (Female) Exam: Normal External Exam, Normal Speculum Exam, Normal Bimanual Exam Rectal (Female) Exam: Normal Exam, Normal Rectal Tone Back Exam: Reports: Normal Inspection, Full Range of Motion Extremities: Normal Inspection, Normal Range of Motion, Non-Tender, No Pedal Edema, Normal Capillary Refill Skin: Reports: Warm, Dry, Intact Wound/Incisions: Reports: Healing Well Neurological: Reports: No New Focal Deficit Psy/Mental Status: Reports: Alert, Normal Affect, Normal Mood
[2019-08-09] MEDS ORDERED: Potassium Chloride 10 MEQ Tab.ER PO SCH (21:00)
== END 2019-08-09 12:30 ==
LOC: DL.ED 22:05 → DL.MS 23:28
PROVIDERS: ADMIT Student in an Organized Health Care Education/Training Program; ATTEND Student in an Organized Health Care Education/Training Program
DX: M79.604 Pain in right leg (principal); M06.9 Rheumatoid arthritis, unspecified; M83.9 Adult osteomalacia, unspecified; M85.80 Other specified disorders of bone density and structure, unspecified site; K21.9 Gastro-esophageal reflux disease without esophagitis; E03.9 Hypothyroidism, unspecified; Z79.82 Long term (current) use of aspirin; Z79.890 Hormone replacement therapy; Z79.899 Other long term (current) drug therapy; Z88.1 Allergy status to other antibiotic agents; Z96.642 Presence of left artificial hip joint; Z88.8 Allergy status to other drugs, medicaments and biological substances; Z88.2 Allergy status to sulfonamides; W01.0XXA Fall on same level from slipping, tripping and stumbling without subsequent striking against object, initial encounter; Y92.009 Unspecified place in unspecified non-institutional (private) residence as the place of occurrence of the external cause; Z98.890 Other specified postprocedural states
CPT/HCPCS: 36415; 72192; 80048; 85027; 96374; 97162; 97165; 99285; A9270; J1170; J3010; J7030; J7512; 96361; 96375; 96376; G0378

== ENCOUNTER 2021-05-15 11:24 | Emergency (ER) | payer SELFPAY ==
[2021-05-15] MEDS ORDERED: Sodium Chloride 0.9% 1,000 ML IV ONE ×2 (11:47→13:30)
[2021-05-15] MEDS ORDERED: methylPREDNISolone Sodium Succinate 125 MG/2 ML SDV IVPUSH ONE (11:47)
[2021-05-15] MEDS ORDERED: Promethazine 25 MG/ML SDV IM ONE (11:49)
[2021-05-15] MEDS ORDERED: HYDROmorphone 1 MG/ML Syringe IVPUSH ONE ×2 (12:24→14:01)
[2021-05-15 13:43] LABS: ANION GAP 16.5 mEq/L (7-13)
== END 2021-05-15 14:17 | disposition home or self-care (01) ==
LOC: DL.ED 11:24
DX: K52.9 Noninfective gastroenteritis and colitis, unspecified (principal); E86.0 Dehydration; K21.9 Gastro-esophageal reflux disease without esophagitis; E03.9 Hypothyroidism, unspecified; Z79.82 Long term (current) use of aspirin; Z79.899 Other long term (current) drug therapy; Z88.8 Allergy status to other drugs, medicaments and biological substances
CPT/HCPCS: 36415; 80053; 81001; 82150; 83605; 83690; 83735; 85025; 86140; 87040; 96372; 96374; 96375; 96376; 99284; 99284-25; J1170; J2550; J2930; J7030